=== PATIENT | female | born 1935 | race African-American/Black ===

== ENCOUNTER 2016-06-06 14:38 | Emergency (ER) | payer MEDICARE, OTHER ==
[~2016-06-06] VITALS: Ht 170.2 cm; Wt 65.3 kg
[2016-06-06] MEDS ORDERED: DIPHENHYDRAMINE 50 MG/ML VIAL IVP ONE (15:00)
[2016-06-06] MEDS ORDERED: IV NORMAL SALINE 1000ML BAG 1,000 ML IV ONE (15:00)
[2016-06-06] MEDS ORDERED: KETOROLAC TROMETHAMINE 30 MG/ML SYRINGE. IV ONE (15:00)
[2016-06-06] MEDS ORDERED: METOCLOPRAMIDE HCL 10 MG/2 ML VIAL. IV ONE (15:00)
--- NOTE | 2016-06-06 15:45 | RAD ---
CT of the head without contrast, 06/06/2016: History: Headache Comparison is made to a study from 06/28/2006. The ventricles are within normal limits in size. There is no shift of the midline structures. There is no evidence of acute intracranial hemorrhage or mass effect. There are moderate patchy lucencies in the deep white matter bilaterally. These appear to have progressed slightly since the previous study. The findings suggest chronic ischemic change. There is a tiny lucency in the anterior limb of the right internal capsule suggesting an old lacunar infarct. There is an additional small left basal ganglia lucency. These findings are unchanged. IMPRESSION: 1. Moderate bilateral deep white matter lucencies compatible with chronic ischemic change. 2. Small old lacunar infarcts in the basal ganglia regions. 3. No acute intracranial abnormality is detected. PQRS Compliance Statement: One or more of the following individualized dose reduction techniques were utilized for this examination: 1. Automated exposure control 2. Adjustment of the mA and/or kV according to patient size 3. Use of iterative reconstruction technique
[2016-06-06 17:00] VITALS: BP 138/65
[2016-06-06] MEDS ORDERED: METO10TA81 PO (17:14)
--- NOTE | 2016-06-06 17:14 | PHYS DOC ---
Past Medical History Past Medical History: Arthritis, Constipation, CVA, Hypothyroid Past Surgical History: Hip Replacement, Hysterectomy Additional Past Surgical Histo: rt hip Alcohol Use: None Drug Use: None Adult General Chief Complaint Chief Complaint: HEADACHE HPI HPI Patient is a 80 year old [f__sex] who presents with [] Review of Systems Review of Systems Constitutional: Denies fever or chills [] Eyes: Denies change in visual acuity, redness, or eye pain [] HENT: Denies nasal congestion or sore throat [] Respiratory: Denies cough or shortness of breath [] Cardiovascular: No additional information not addressed in HPI [] GI: Denies abdominal pain, nausea, vomiting, bloody stools or diarrhea [] : Denies dysuria or hematuria [] Musculoskeletal: Denies back pain or joint pain [] Integument: Denies rash or skin lesions [] Neurologic: Denies headache, focal weakness or sensory changes [] Endocrine: Denies polyuria or polydipsia [] Current Medications Current Medications Current Medications Medications (Trade) Dose Ordered Sig/Jeffry Start Time Stop Time Status Last Admin Dose Admin Diphenhydramine HCl (Benadryl) 25 mg 1X ONCE 06/06/16 15:00 06/06/16 15:04 DC 06/06/16 15:07 25 MG Ketorolac Tromethamine (Toradol) 30 mg 1X ONCE 06/06/16 15:00 06/06/16 15:04 DC 06/06/16 15:07 30 MG Metoclopramide HCl (Reglan) 10 mg 1X ONCE 06/06/16 15:00 06/06/16 15:04 DC 06/06/16 15:07 10 MG Sodium Chloride (Iv Sodium Chloride 0.9% 1000ml Bag) 1,000 ml @ 1,000 mls/hr 1X ONCE 06/06/16 15:00 06/06/16 15:59 DC 06/06/16 15:08 1,000 MLS/HR Allergies Allergies Allergies Coded Allergies Type Severity Reaction Last Updated Verified No Known Drug Allergies 01/10/14 No Physical Exam Physical Exam Constitutional: Well developed, well nourished, no acute distress, non-toxic appearance. [] HENT: Normocephalic, atraumatic, bilateral external ears normal, oropharynx moist, no oral exudates, nose normal. [] Eyes: PERRLA, EOMI, conjunctiva normal, no discharge. [] Neck: Normal range of motion, no tenderness, supple, no stridor. [] Cardiovascular:Heart rate regular rhythm, no murmur [] Lungs & Thorax: Bilateral breath sounds clear to auscultation [] Abdomen: Bowel sounds normal, soft, no tenderness, no masses, no pulsatile masses. [] Skin: Warm, dry, no erythema, no rash. [] Back: No tenderness, no CVA tenderness. [] Extremities: No tenderness, no cyanosis, no clubbing, ROM intact, no edema. [] Neurologic: Alert and oriented X 3, normal motor function, normal sensory function, no focal deficits noted. [] Psychologic: Affect normal, judgement normal, mood normal. [] Current Patient Data Vital Signs Vital Signs Date Time Temp Pulse Resp B/P Pulse Ox O2 Delivery O2 Flow Rate FiO2 06/06/16 14:56 98.4 59 23 142/78 100 Room Air 98.4 EKG EKG [] Radiology/Procedures Radiology/Procedures [] Impressions: PROCEDURE: HEAD WO CONTRAST CT of the head without contrast, 06/06/2016: History: Headache Comparison is made to a study from 06/28/2006. The ventricles are within normal limits in size. There is no shift of the midline structures. There is no evidence of acute intracranial hemorrhage or mass effect. There are moderate patchy lucencies in the deep white matter bilaterally. These appear to have progressed slightly since the previous study. The findings suggest chronic ischemic change. There is a tiny lucency in the anterior limb of the right internal capsule suggesting an old lacunar infarct. There is an additional small left basal ganglia lucency. These findings are unchanged. IMPRESSION: 1. Moderate bilateral deep white matter lucencies compatible with chronic ischemic change. 2. Small old lacunar infarcts in the basal ganglia regions. 3. No acute intracranial abnormality is detected. Course & Med Decision Making Course & Med Decision Making Pertinent Labs and Imaging studies reviewed. (See chart for details) [ED course: Evaluation reveals an 80-year-old female with a headache. She had no lateralizing neurologic weakness. She was given IV fluids Reglan and Benadryl which alleviated her symptoms. Fill the patient is stable for discharge home] Dragon Disclaimer Dragon Disclaimer This electronic medical record was generated, in whole or in part, using a voice recognition dictation system. Departure Departure Impression: Primary Impression: Headache Disposition: 01 HOME, SELF-CARE Condition: STABLE Referrals: ESTHELA DE SOUZA (PCP) Patient Instructions: Headache, FAQs, Migraine Headache Additional Instructions: Thank you for allowing us to participate in your care today. Followup with your primary care physician in 3 days if your symptoms do not improve. Return to the emergency department you have any new or concerning findings. This should be evaluated by the primary care physician and any necessary consulting services for continued management within a few days after discharge. Return to emergency room if you have any new or concerning symptoms including but not limited to fever, chills, nausea, vomiting, intractable pain, any new rashes, chest pain, shortness of air, uncontrolled bleeding, difficulty breathing, and/or vision loss. You may have been prescribed medication that can change in your level of thinking and ability to operate machinery. These medications include hydrocodone and Ativan. Also, Benadryl has been known to do this as well. Be sure to check with your pharmacist and ask if the medications you've prescribed can affect your level of consciousness. I recommend not operating heavy machinery or driving while on medication such as these. Scripts Metoclopramide Hcl (Reglan)10 Mg Tablet1 Tab PO Q8HRS PRN migraine #30 TAB Prov:HANNA LOVING DO 06/06/16 Problem Qualifiers Primary Impression: Headache Headache type: tension-type Headache chronicity pattern: unspecified pattern Intractability: not intractable Qualified Code: G44.209 - Tension- type headache, unspecified, not intractable HANNA LOVING DO Jun 06, 2016 17:14
== END 2016-06-06 17:21 | disposition home or self-care (01) ==
LOC: ER 14:38
DX: G44.209 Tension-type headache, unspecified, not intractable (principal); E03.9 Hypothyroidism, unspecified; Z86.73 Personal history of transient ischemic attack (TIA), and cerebral infarction without residual deficits
CPT/HCPCS: 70450; 96361; 96374; 96375; 99284; J1200; J1885; J2765; J7030

== ENCOUNTER → 2016-07-26 | Outpatient (CLI) | payer MEDICARE, OTHER ==
[~2016-07-26] MED LIST: METO10TA81 PO
== END | disposition home or self-care (01) ==
LOC: RT 10:30
PROVIDERS: ATTEND Psychiatry & Neurology Neurology
DX: R94.01 Abnormal electroencephalogram [EEG] (principal)
CPT/HCPCS: 95816

== ENCOUNTER → 2016-08-06 | Outpatient (CLI) | payer MEDICARE, OTHER ==
--- NOTE | 2016-08-06 14:09 | RAD ---
PROCEDURE MRI of the brain without and with contrast 08/06/2016 HISTORY Increased headaches and memory loss. TECHNIQUE Unenhanced T1 weighted sagittal and axial, T2 weighted axial and coronal and FLAIR, gradient echo and diffusion weighted axial images of the brain were obtained. After the intravenous administration of 6 cc of Gadavist, enhanced T1 weighted axial and coronal images of the brain were obtained. FINDINGS Comparison study is dated 06/29/2006. There is generalized parenchymal atrophy. Patchy, confluent and multiple focal areas of abnormally increased signal intensity are seen within the periventricular and subcortical white matter of both cerebral hemispheres along with the st[place]ford on the FLAIR and T2 weighted images consistent with areas of extensive small vessel ischemic disease. These have increased since the previous examination. Small old areas of infarction are seen involving both cerebellar hemispheres and the left and right thalamus. These measure 2 to 9 millimeters in size. Several small focal areas of decreased signal intensity are seen involving the left and right thalamus predominantly on the gradient echo images. There is no surrounding edema or associated mass effect. They are felt to most likely represent cavernous angiomas versus areas of old microhemorrhage. No acute parenchymal abnormality is seen. No extra-axial fluid collection is noted. There is no MRI evidence of acute ischemia/infarction. No abnormal area of contrast enhancement is seen. Mild mucosal thickening is seen involving scattered ethmoid air cells bilaterally. Normal flow voids are seen within the major vascular structures surrounding the brain parenchyma. IMPRESSION No acute parenchymal abnormality is seen. Electronically signed by: Neno Chacko MD (Aug 06, 2016 14:08:25)
== END | disposition home or self-care (01) ==
LOC: MRI 15:09
PROVIDERS: ATTEND Psychiatry & Neurology Neurology
DX: I63.9 Cerebral infarction, unspecified (principal); R51 Headache; R41.3 Other amnesia
CPT/HCPCS: 70553

== ENCOUNTER → 2017-09-29 | Outpatient (CLI) | payer MEDICARE, OTHER ==
[~2017-09-29] MED LIST changes: +CONTRAST GIVEN MC; -METO10TA81 PO
[2017-09-29] MEDS: IOHEXOL 300 MG/ML 100ML VIAL. IV (11:27)
[2017-09-29 11:53] LABS: ISTAT CREATININE 1.1 mg/dL (0.6-1.1)
== END | disposition home or self-care (01) ==
LOC: KCIC CT 10:13
DX: M43.16 Spondylolisthesis, lumbar region (principal); I70.0 Atherosclerosis of aorta; R31.0 Gross hematuria
CPT/HCPCS: 74178; 82565; Q9967

== ENCOUNTER → 2017-10-05 | Outpatient (CLI) | payer OTHER ==
[2017-10-05 11:42] LABS: ADD MAN DIFF? NO
[2017-10-05 11:49] LABS: BASO % 1 % (0-3); EOS % 1 % (0-3); HEMATOCRIT 26.7 % (36.0-47.0); HEMOGLOBIN 8.9 g/dL (12.0-15.5); LYMPH # 0.9 x10^3/uL (1.0-4.8); LYMPH % 23 % (24-48); MEAN CORPUSCULAR HEMOGLOBIN 32 pg (25-35); MEAN CORPUSCULAR HGB CONC 33 g/dL (31-37); MEAN CORPUSCULAR VOLUME 96 fL (79-100); MONO # 0.4 x10^3/uL (0.0-1.1); MONO % 11 % (0-9); NEUT # 2.5 x10^3uL (1.8-7.7); NEUT % 64 % (31-73); PLATELET COUNT 292 x10^3/uL (140-400); RED BLOOD COUNT 2.78 x10^6/uL (3.50-5.40); WHITE BLOOD COUNT 3.9 x10^3/uL (4.0-11.0)
[2017-10-05 12:00] LABS: ALBUMIN/GLOBULIN RATIO 0.6 (1.0-1.7); ALK PHOS 65 U/L (46-116); ALT (SGPT) 17 U/L (14-59); ANION GAP 3 (6-14); AST (SGOT) 19 U/L (15-37); BLOOD UREA NITROGEN 16 mg/dL (7-20); BUN/CREATININE RATIO 16 (6-20); CALCIUM 9.9 mg/dL (8.5-10.1); CARBON DIOXIDE 30 mmol/L (21-32); CHLORIDE 106 mmol/L (98-107); GFR 63.9; GLUCOSE 86 mg/dL (70-99); POTASSIUM 4.3 mmol/L (3.5-5.1); SODIUM 139 mmol/L (136-145); TOTAL BILIRUBIN 0.2 mg/dL (0.2-1.0); TOTAL PROTEIN 8.2 g/dL (6.4-8.2)
== END | disposition home or self-care (01) ==
LOC: LAB 10:57
DX: R31.0 Gross hematuria (principal)
CPT/HCPCS: 36415; 80053; 85025; 93005

== ENCOUNTER 2018-04-11 22:29 | Emergency (ER) | payer OTHER ==
[~2018-04-11] VITALS: Ht 170.2 cm; Wt 64.0 kg
[~2018-04-11 22:29] MED LIST changes: +CLOP75TA PO; -CONTRAST GIVEN MC; +DOCU-150 PO; +FAMO-63 PO; +HYDR-3164 PO; +HYOS0.1265 SL; +LEVO150T5 PO; +METO10TA81 PO; +MULT-237 PO; +SENN1TAB29 PO
--- NOTE | 2018-04-11 23:11 | PHYS DOC ---
Past Medical History Past Medical History: Arthritis, Constipation, CVA, Hypothyroid Past Surgical History: Hip Replacement, Hysterectomy Additional Past Surgical Histo: rt hip Alcohol Use: None Drug Use: None Adult General Chief Complaint Chief Complaint: DIZZY/LIGHT HEADED HPI HPI Patient is a 82 year old [f__sex] who presents with [] Review of Systems Review of Systems Constitutional: Denies fever or chills [] Eyes: Denies change in visual acuity, redness, or eye pain [] HENT: Denies nasal congestion or sore throat [] Respiratory: Denies cough or shortness of breath [] Cardiovascular: No additional information not addressed in HPI [] GI: Denies abdominal pain, nausea, vomiting, bloody stools or diarrhea [] : Denies dysuria or hematuria [] Musculoskeletal: Denies back pain or joint pain [] Integument: Denies rash or skin lesions [] Neurologic: Denies headache, focal weakness or sensory changes [] Endocrine: Denies polyuria or polydipsia [] All other systems were reviewed and found to be within normal limits, except as documented in this note. Current Medications Current Medications Current Medications Medications (Trade) Dose Ordered Sig/Jeffry Start Time Stop Time Status Last Admin Dose Admin Meclizine HCl (Antivert) 25 mg 1X ONCE 04/11/18 23:45 04/11/18 23:46 DC 04/11/18 23:41 25 MG Sodium Chloride 1,000 ml @ 1,000 mls/hr 1X ONCE 04/11/18 23:30 04/12/18 00:29 04/11/18 23:17 1,000 MLS/HR Allergies Allergies Allergies Coded Allergies Type Severity Reaction Last Updated Verified No Known Drug Allergies 11/09/17 No Physical Exam Physical Exam Constitutional: Well developed, well nourished, no acute distress, non-toxic appearance. [] HENT: Normocephalic, atraumatic, bilateral external ears normal, oropharynx moist, no oral exudates, nose normal. [] Eyes: PERRLA, EOMI, conjunctiva normal, no discharge. [] Neck: Normal range of motion, no tenderness, supple, no stridor. [] Cardiovascular:Heart rate regular rhythm, no murmur [] Lungs & Thorax: Bilateral breath sounds clear to auscultation [] Abdomen: Bowel sounds normal, soft, no tenderness, no masses, no pulsatile masses. [] Skin: Warm, dry, no erythema, no rash. [] Back: No tenderness, no CVA tenderness. [] Extremities: No tenderness, no cyanosis, no clubbing, ROM intact, no edema. [] Neurologic: Alert and oriented X 3, normal motor function, normal sensory function, no focal deficits noted. [] Psychologic: Affect normal, judgement normal, mood normal. [] Current Patient Data Vital Signs Vital Signs Date Time Temp Pulse Resp B/P (MAP) Pulse Ox O2 Delivery O2 Flow Rate FiO2 04/11/18 22:30 97.7 58 20 137/77 (97) 98 Room Air 97.7 Lab Values Laboratory Tests Test 04/11/18 22:47 04/11/18 23:00 Urine Collection Type U cath Urine Color Yellow Urine Clarity Clear Urine pH 6.5 Urine Specific [place] 1.015 Urine Protein 30 mg/dL (NEG-TRACE) Urine Glucose (UA) Negative mg/dL (NEG) Urine Ketones (Stick) Negative mg/dL (NEG) Urine Blood Small (NEG) Urine Nitrite Negative (NEG) Urine Bilirubin Negative (NEG) Urine Urobilinogen Dipstick 0.2 mg/dL (0.2 mg/dL) Urine Leukocyte Esterase Negative (NEG) Urine RBC 3-5 /HPF (0-2) Urine WBC Occ /HPF (0-4) Urine Squamous Epithelial Cells Few /LPF Urine Bacteria 0 /HPF (0-FEW) Urine Mucus Slight /LPF White Blood Count 4.1 x10^3/uL (4.0-11.0) Red Blood Count 2.97 x10^6/uL (3.50-5.40) L Hemoglobin 9.6 g/dL (12.0-15.5) L Hematocrit 27.8 % (36.0-47.0) L Mean Corpuscular Volume 94 fL (79-100) Mean Corpuscular Hemoglobin 32 pg (25-35) Mean Corpuscular Hemoglobin Concent 35 g/dL (31-37) Red Cell Distribution Width 15.0 % (11.5-14.5) H Platelet Count 244 x10^3/uL (140-400) Neutrophils (%) (Auto) 50 % (31-73) Lymphocytes (%) (Auto) 34 % (24-48) Monocytes (%) (Auto) 13 % (0-9) H Eosinophils (%) (Auto) 2 % (0-3) Basophils (%) (Auto) 1 % (0-3) Neutrophils # (Auto) 2.0 x10^3uL (1.8-7.7) Lymphocytes # (Auto) 1.4 x10^3/uL (1.0-4.8) Monocytes # (Auto) 0.5 x10^3/uL (0.0-1.1) Eosinophils # (Auto) 0.1 x10^3/uL (0.0-0.7) Basophils # (Auto) 0.0 x10^3/uL (0.0-0.2) Sodium Level 140 mmol/L (136-145) Potassium Level 3.6 mmol/L (3.5-5.1) Chloride Level 104 mmol/L (98-107) Carbon Dioxide Level 32 mmol/L (21-32) Anion Gap 4 (6-14) L Blood Urea Nitrogen 18 mg/dL (7-20) Creatinine 1.1 mg/dL (0.6-1.0) H Estimated GFR (Cockcroft-Gault) 57.3 BUN/Creatinine Ratio 16 (6-20) Glucose Level 91 mg/dL (70-99) Calcium Level 9.6 mg/dL (8.5-10.1) Magnesium Level 2.0 mg/dL (1.8-2.4) Total Bilirubin 0.1 mg/dL (0.2-1.0) L Aspartate Amino Transferase (AST) 14 U/L (15-37) L Alanine Aminotransferase (ALT) 14 U/L (14-59) Alkaline Phosphatase 83 U/L (46-116) Creatine Kinase 71 U/L (26-192) Creatine Kinase MB (Mass) 8.7 ng/mL (0.0-3.6) H Creatine Kinase MB Relative Index % (0-4) Troponin I Quantitative < 0.017 ng/mL (0.000-0.055) Total Protein 7.7 g/dL (6.4-8.2) Albumin 2.8 g/dL (3.4-5.0) L Albumin/Globulin Ratio 0.6 (1.0-1.7) L Laboratory Tests 04/11/18 23:00 Laboratory Tests 04/11/18 23:00 EKG EKG @2241 Sinus bradycardia at 53 bpm, NO ST elevation, nonspecific t wave inversion V3, LAFB Radiology/Procedures Radiology/Procedures [] Course & Med Decision Making Course & Med Decision Making Pertinent Labs and Imaging studies reviewed. (See chart for details) [] Dragon Disclaimer Dragon Disclaimer This electronic medical record was generated, in whole or in part, using a voice recognition dictation system. Departure Departure Impression: Primary Impression: Dizziness Disposition: 01 HOME, SELF-CARE Condition: IMPROVED Referrals: ESTHELA DE SOUZA (PCP) Patient Instructions: Dizziness, [id number] Scripts Meclizine Hcl (MECLIZINE HCL) 12.5 Mg Tablet 1 TAB PO TID PRN for DIZZINESS, #20 TAB 0 Refills Prov: ANGELIC ZHOU DO 04/12/18 ANGELIC ZHOU DO Apr 11, 2018 23:11
[2018-04-11 23:16] LABS: BILIRUBIN,URINE NEGATIVE (NEG); CLARITY,URINE CLEAR; COLOR,URINE YELLOW; NITRITE,URINE NEGATIVE (NEG); PH,URINE 6.5; PROTEIN,URINE 30 mg/dL (NEG-TRACE); UROBILINOGEN,URINE 0.2 mg/dL (0.2 mg/dL)
[2018-04-11 23:17] LABS: BASO % 1 % (0-3); EOS # 0.1 x10^3/uL (0.0-0.7); EOS % 2 % (0-3); HEMATOCRIT 27.8 % (36.0-47.0); HEMOGLOBIN 9.6 g/dL (12.0-15.5); LYMPH # 1.4 x10^3/uL (1.0-4.8); LYMPH % 34 % (24-48); MEAN CORPUSCULAR HEMOGLOBIN 32 pg (25-35); MEAN CORPUSCULAR HGB CONC 35 g/dL (31-37); MEAN CORPUSCULAR VOLUME 94 fL (79-100); MONO # 0.5 x10^3/uL (0.0-1.1); MONO % 13 % (0-9); NEUT % 50 % (31-73); PLATELET COUNT 244 x10^3/uL (140-400); RED BLOOD COUNT 2.97 x10^6/uL (3.50-5.40); WHITE BLOOD COUNT 4.1 x10^3/uL (4.0-11.0)
[2018-04-11 23:20] LABS: BACTERIA,URINE 0 /HPF (0-FEW); SQUAMOUS EPITHELIAL CELL,UR FEW /LPF; WBC,URINE OCC /HPF (0-4)
[2018-04-11 23:24] LABS: CALCIUM 9.6 mg/dL (8.5-10.1); CREATININE 1.1 mg/dL (0.6-1.0); GFR 57.3; POTASSIUM 3.6 mmol/L (3.5-5.1)
[2018-04-11 23:30] LABS: ALBUMIN 2.8 g/dL (3.4-5.0); ALBUMIN/GLOBULIN RATIO 0.6 (1.0-1.7); TOTAL BILIRUBIN 0.1 mg/dL (0.2-1.0); TOTAL PROTEIN 7.7 g/dL (6.4-8.2)
[2018-04-11] MEDS ORDERED: IV NORMAL SALINE 1000ML BAG 1,000 ML IV ONE (23:30)
[2018-04-11 23:38] LABS: CREATINE KINASE 71 U/L (26-192)
--- NOTE | 2018-04-11 23:41 | RAD ---
CT scan of the head without contrast 04/11/2018 Clinical History: Dizziness. Technique: Unenhanced, contiguous, 5 mm axial sections were obtained through the head. One or more of the following individualized dose reduction techniques were utilized for this study: 1. Automated exposure control. 2. Adjustment of the mA and/or kV according to patient size. 3. Use of iterative reconstruction technique. Findings: Comparison study is dated 06/06/2016. There is generalized parenchymal atrophy. Areas of decreased attenuation are seen within the periventricular and subcortical white matter of both cerebral hemispheres consistent with areas of small vessel ischemic disease. No acute parenchymal abnormality is seen. No extra-axial fluid collection is noted. No skull fracture is seen. Impression: No acute intracranial abnormality is seen. Electronically signed by: Neno Chacko MD (04/11/2018 11:38 PM) [id number]
[2018-04-11] MEDS ORDERED: MECLIZINE HCL 12.5 MG TABLET. PO ONE (23:45)
--- NOTE | 2018-04-11 23:49 | RAD ---
AP pelvis radiograph to include AP and lateral radiographs of the right hip 04/11/2018 CLINICAL HISTORY: Fall one month ago with right hip pain. An AP digital radiograph of the pelvis to include both hips was obtained. AP and lateral radiographs of the right hip were obtained. The patient is post right hip replacement. The prosthetic components are intact. No pelvic bone fracture is seen. No fracture or dislocation of the right hip is noted. Mild degenerative changes are seen involving both SI joints. IMPRESSION: Post right hip replacement. No acute fracture or dislocation is seen. Electronically signed by: Neno Chacko MD (04/11/2018 11:45 PM) [id number]
[2018-04-12] VITALS: BP 158/81
--- NOTE | 2018-04-12 00:06 | RAD ---
AP portable chest radiograph 04/11/2018 Clinical History: Dizziness. An AP semi erect portable digital radiograph of the chest was obtained. Comparison study is dated 10/03/2010. The cardiac silhouette is mildly enlarged. The thoracic aorta is tortuous. Atherosclerotic calcification of the thoracic aorta is seen. No acute pulmonary infiltrate is noted. No pneumothorax or pleural effusion is seen. Degenerative changes are seen involving the thoracic spine and both shoulders. Impression: No acute abnormality is seen. Electronically signed by: Neno Chacko MD (04/12/2018 12:03 AM) [facility]
[2018-04-12] MEDS ORDERED: MECL12.52 PO (00:19)
--- NOTE | 2018-04-12 04:21 | EKG ---
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
== END 2018-04-12 00:55 | disposition home or self-care (01) ==
LOC: ER 22:29
DX: R42 Dizziness and giddiness (principal); E03.9 Hypothyroidism, unspecified; M19.90 Unspecified osteoarthritis, unspecified site; Z86.73 Personal history of transient ischemic attack (TIA), and cerebral infarction without residual deficits; Z96.641 Presence of right artificial hip joint
CPT/HCPCS: 36415; 70450; 71045; 73502; 80053; 81001; 82553; 83735; 84484; 85025; 93005; 96360; 99284; J7030; J8597

== ENCOUNTER 2018-05-22 13:15 | Emergency (ER) | payer OTHER ==
[~2018-05-22] VITALS: Ht 170.2 cm; Wt 77.6 kg
[~2018-05-22 13:15] MED LIST changes: +MECL12.52 PO
--- NOTE | 2018-05-22 13:23 | PHYS DOC ---
Past Medical History Past Medical History: Arthritis, Constipation, CVA, Hypothyroid Past Surgical History: Hip Replacement, Hysterectomy Additional Past Surgical Histo: rt hip Alcohol Use: None Drug Use: None Adult General HPI HPI Patient is a 82 year old female who presents with abdominal pain. Patient complains of diffuse abdominal pain which she has had over the last 4-5 days. The patient states her last bowel movement was 5 days earlier. She does have the sensation that she needs to defecate but has been unable to do so. She denies urinary symptoms. No nausea or vomiting. No hematochezia or melena. Denies chest pain or shortness of breath. At baseline, the patient lives in an apartment and does have a caregiver that helps her daily. Review of Systems Review of Systems Constitutional: Denies fever Eyes: Denies change in visual acuity HENT: Denies Respiratory: Denies Cardiovascular: No additional information not addressed in HPI GI: as documented above : Denies dysuria Musculoskeletal: Denies back pain Integument: Denies rash or skin lesions Neurologic: Denies headache All other systems were reviewed and found to be within normal limits, except as documented in this note. Current Medications Current Medications Current Medications Medications (Trade) Dose Ordered Sig/Jeffry Start Time Stop Time Status Last Admin Dose Admin Ceftriaxone Sodium (Rocephin) 1 gm 1X ONCE 05/22/18 16:15 05/22/18 16:16 DC 05/22/18 16:25 1 GM Info (CONTRAST GIVEN -- Rx MONITORING) 1 each PRN DAILY PRN 05/22/18 14:30 05/24/18 14:29 Iohexol (Omnipaque 300 Mg/ml) 60 ml 1X ONCE 05/22/18 14:30 05/22/18 14:31 DC 05/22/18 14:36 60 ML Phenytoin Sodium (Dilantin) 500 mg 1X ONCE 05/22/18 16:15 05/22/18 16:16 Cancel Sodium Monofluorophosphate (Fleet Adult) 133 ml 1X ONCE 05/22/18 16:15 05/22/18 16:16 DC 05/22/18 16:26 133 ML Allergies Allergies Allergies Coded Allergies Type Severity Reaction Last Updated Verified No Known Drug Allergies 11/09/17 No Physical Exam Physical Exam Constitutional: Well developed, well nourished, no acute distress, non-toxic appearance HENT: Normocephalic, atraumatic, bilateral external ears normal, oropharynx moist Eyes: PERRLA, EOMI, conjunctiva normal Neck: Normal range of motion, no tenderness Cardiovascular:Heart rate regular rhythm, no murmur Lungs & Thorax: Bilateral breath sounds clear to auscultation Abdomen: soft, diffusely TTP but no guarding or rebound tenderness, no distension Skin: Warm, dry, no erythema, no rash Extremities: No tenderness, no edema Neurologic: Alert and oriented X 3, normal motor function Psychologic: Affect normal, judgement normal Current Patient Data Vital Signs Vital Signs Date Time Temp Pulse Resp B/P (MAP) Pulse Ox O2 Delivery O2 Flow Rate FiO2 05/22/18 15:51 50 165/82 (109) 99 Room Air 05/22/18 13:15 98.1 18 98.1 Lab Values Laboratory Tests Test 05/22/18 13:40 05/22/18 14:50 White Blood Count 3.8 x10^3/uL (4.0-11.0) L Red Blood Count 3.41 x10^6/uL (3.50-5.40) L Hemoglobin 10.9 g/dL (12.0-15.5) L Hematocrit 31.9 % (36.0-47.0) L Mean Corpuscular Volume 94 fL (79-100) Mean Corpuscular Hemoglobin 32 pg (25-35) Mean Corpuscular Hemoglobin Concent 34 g/dL (31-37) Red Cell Distribution Width 15.0 % (11.5-14.5) H Platelet Count 265 x10^3/uL (140-400) Neutrophils (%) (Auto) 54 % (31-73) Lymphocytes (%) (Auto) 35 % (24-48) Monocytes (%) (Auto) 9 % (0-9) Eosinophils (%) (Auto) 1 % (0-3) Basophils (%) (Auto) 1 % (0-3) Neutrophils # (Auto) 2.1 x10^3uL (1.8-7.7) Lymphocytes # (Auto) 1.3 x10^3/uL (1.0-4.8) Monocytes # (Auto) 0.3 x10^3/uL (0.0-1.1) Eosinophils # (Auto) 0.0 x10^3/uL (0.0-0.7) Basophils # (Auto) 0.1 x10^3/uL (0.0-0.2) Sodium Level 138 mmol/L (136-145) Potassium Level 3.9 mmol/L (3.5-5.1) Chloride Level 103 mmol/L (98-107) Carbon Dioxide Level 30 mmol/L (21-32) Anion Gap 5 (6-14) L Blood Urea Nitrogen 16 mg/dL (7-20) Creatinine 1.1 mg/dL (0.6-1.0) H Estimated GFR (Cockcroft-Gault) 57.3 Glucose Level 102 mg/dL (70-99) H Lactic Acid Level 1.3 mmol/L (0.4-2.0) Calcium Level 9.8 mg/dL (8.5-10.1) Total Bilirubin 0.2 mg/dL (0.2-1.0) Direct Bilirubin 0.1 mg/dL (0.0-0.2) Aspartate Amino Transferase (AST) 20 U/L (15-37) Alanine Aminotransferase (ALT) 20 U/L (14-59) Alkaline Phosphatase 63 U/L (46-116) Troponin I Quantitative < 0.017 ng/mL (0.000-0.055) Total Protein 8.1 g/dL (6.4-8.2) Albumin 3.1 g/dL (3.4-5.0) L Lipase 103 U/L (73-393) Urine Collection Type Unknown Urine Color Yellow Urine Clarity Clear Urine pH 6.5 Urine Specific Ubly 1.020 Urine Protein 100 mg/dL (NEG-TRACE) Urine Glucose (UA) Negative mg/dL (NEG) Urine Ketones (Stick) Negative mg/dL (NEG) Urine Blood Moderate (NEG) Urine Nitrite Negative (NEG) Urine Bilirubin Negative (NEG) Urine Urobilinogen Dipstick 0.2 mg/dL (0.2 mg/dL) Urine Leukocyte Esterase Trace (NEG) Urine RBC 20-40 /HPF (0-2) Urine WBC 11-20 /HPF (0-4) Urine Squamous Epithelial Cells Mod /LPF Urine Bacteria Few /HPF (0-FEW) Urine Mucus Mod /LPF Laboratory Tests 05/22/18 13:40 Laboratory Tests 05/22/18 13:40 EKG EKG No STEMI Interpretation Time: 13:50 Radiology/Procedures Radiology/Procedures IMPRESSION: 1. Prominent appearing pancreatic duct with pancreatic calcifications again identified. Chronic pancreatitis is a possibility given the findings: No evidence of inflammation identified about the pancreas to suggest acute pancreatitis. Cannot exclude underlying pancreatic pathology. Recommend follow-up nonemergent MRI for further evaluation. 2. The appendix is not clearly identified due to multiple nondistended small bowel loops in the right lower quadrant of the abdomen. The evaluation is limited due to streak artifact from right hip prosthesis. 3. Sigmoid colon diverticulosis. 4. Right renal cyst unchanged. Mild prominent appearing bilateral extrarenal pelvis. Impressions: Constipation Course & Med Decision Making Course & Med Decision Making Pertinent Labs and Imaging studies reviewed. (See chart for details) Patient is evaluated immediately on arrival to her room. Her abdominal exam is mostly benign. Standard abdominal pain workup is ordered. Will also check troponin, EKG, and lactate. 16:30: All results are reviewed and discussed with the patient. There are no acute findings to explain her pain. She is currently not having pain. She was not given pain medications in the emergency department. She does continue to complain that she feels the need to defecate but is unable to do so. We'll give fleets enema and reevaluate. Her troponin is not elevated. Her EKG is nonacute. The rest of her lab panels unremarkable other than possible urinary tract infection for which she is being given Rocephin. 17:12: Patient was given a Fleet enema. She had a large solid BM and immediately felt improved. Patient was requesting discharge home. She was given Rocephin in the ER. Unclear if she actually has urinary tract infection though the records show she does have some history of bladder cancer. She will be treated with Macrobid at home over the next 5 days. Patient is encouraged to follow-up with her primary care doctor or come back to the ER for any new or worsening symptoms. She had docusate 100 mg prescribed twice daily along with MiraLAX daily or more than daily as needed for constipation. Dragon Disclaimer Dragon Disclaimer This electronic medical record was generated, in whole or in part, using a voice recognition dictation system. Departure Departure Disposition: 01 HOME, SELF-CARE Condition: GOOD Referrals: ESTHELA DE SOUZA (PCP) Scripts Nitrofurantoin Monohyd/M-Cryst (MACROBID 100 MG CAPSULE) 100 Mg Capsule 1 CAP PO BID, #10 CAP Prov: ASHLEY DYSON DO 05/22/18 Polyethylene Glycol 3350 (MIRALAX) 17 Gm Powd.pack 1 PACKET PO DAILY for constipation, #30 PACKET 3 Refills Prov: ASHLEY DYSON DO 05/22/18 Docusate Sodium (DOCUSATE SODIUM) 100 Mg Capsule 1 CAP PO BID, #60 CAP Prov: ASHLEY DYSON DO 05/22/18 ASHLEY DYSON DO May 22, 2018 13:23
[2018-05-22 13:54] LABS: BASO # 0.1 x10^3/uL (0.0-0.2); BASO % 1 % (0-3); EOS % 1 % (0-3); HEMATOCRIT 31.9 % (36.0-47.0); HEMOGLOBIN 10.9 g/dL (12.0-15.5); LYMPH # 1.3 x10^3/uL (1.0-4.8); LYMPH % 35 % (24-48); MEAN CORPUSCULAR HEMOGLOBIN 32 pg (25-35); MEAN CORPUSCULAR HGB CONC 34 g/dL (31-37); MEAN CORPUSCULAR VOLUME 94 fL (79-100); MONO # 0.3 x10^3/uL (0.0-1.1); MONO % 9 % (0-9); NEUT # 2.1 x10^3uL (1.8-7.7); NEUT % 54 % (31-73); PLATELET COUNT 265 x10^3/uL (140-400); RED BLOOD COUNT 3.41 x10^6/uL (3.50-5.40); WHITE BLOOD COUNT 3.8 x10^3/uL (4.0-11.0)
[2018-05-22 14:01] LABS: CALCIUM 9.8 mg/dL (8.5-10.1); CREATININE 1.1 mg/dL (0.6-1.0); GFR 57.3; POTASSIUM 3.9 mmol/L (3.5-5.1)
[2018-05-22 14:07] LABS: ALBUMIN 3.1 g/dL (3.4-5.0); DIRECT BILIRUBIN 0.1 mg/dL (0.0-0.2); TOTAL BILIRUBIN 0.2 mg/dL (0.2-1.0); TOTAL PROTEIN 8.1 g/dL (6.4-8.2)
--- NOTE | 2018-05-22 14:18 | EKG ---
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
[2018-05-22] MEDS ORDERED: CONTRAST GIVEN. MC PRN (14:30)
[2018-05-22] MEDS ORDERED: IOHEXOL 300 MG/ML 100ML VIAL. IV ONE (14:30)
--- NOTE | 2018-05-22 15:03 | RAD ---
Examination: CT of the abdomen pelvis with IV contrast HISTORY: History of abdominal pain for 4 days COMPARISON: 09/29/2017 TECHNIQUE: Axial CT images of the abdomen pelvis were performed with IV contrast. Coronal and sagittal reformats are performed Exposure: One or more of the following individualized dose reduction techniques were utilized for this examination: 1. Automated exposure control 2. Adjustment of the mA and/or kV according to patient size 3. Use of iterative reconstruction technique FINDINGS: Minimal bibasilar lung atelectasis. No evidence of free air identified in the abdomen. Mild prominent appearing intrahepatic and extra hepatic bile duct likely postcholecystectomy changes similar to prior exam. Examination is limited lack of significant intra-abdominal fat. Visualized spleen, adrenals grossly appears unremarkable. The stomach is mildly distended. Mild prominent appearing pancreatic duct. Few calcifications identified in the pancreas similar to prior exam. The small bowel is nondilated. Feces and gas noted in the colon. The evaluation of the pelvis is limited due to streak artifact from right hip prosthesis. Few colonic diverticulosis identified. The bilateral kidneys enhance symmetrically. Cyst identified in the right kidney measuring 1.6 cm similar to prior exam. Prominent appearing bilateral extrarenal pelvis right greater than left. Evaluation of the distal ureters is limited due to streak artifact from right hip prosthesis. Moderate aortic atherosclerosis. The appendix is not clearly evident. Moderate degenerative changes lumbar spine. Transitional anatomy is identified in the lumbar spine. IMPRESSION: 1. Prominent appearing pancreatic duct with pancreatic calcifications again identified. Chronic pancreatitis is a possibility given the findings: No evidence of inflammation identified about the pancreas to suggest acute pancreatitis. Cannot exclude underlying pancreatic pathology. Recommend follow-up nonemergent MRI for further evaluation. 2. The appendix is not clearly identified due to multiple nondistended small bowel loops in the right lower quadrant of the abdomen. The evaluation is limited due to streak artifact from right hip prosthesis. 3. Sigmoid colon diverticulosis. 4. Right renal cyst unchanged. Mild prominent appearing bilateral extrarenal pelvis. Electronically signed by: Bautista Sears MD (05/22/2018 2:58 PM) [facility]
[2018-05-22 15:05] LABS: BILIRUBIN,URINE NEGATIVE (NEG); CLARITY,URINE CLEAR; COLOR,URINE YELLOW; NITRITE,URINE NEGATIVE (NEG); PH,URINE 6.5; PROTEIN,URINE 100 mg/dL (NEG-TRACE); UROBILINOGEN,URINE 0.2 mg/dL (0.2 mg/dL)
[2018-05-22 15:13] LABS: BACTERIA,URINE FEW /HPF (0-FEW); RBC,URINE 20-40 /HPF (0-2); SQUAMOUS EPITHELIAL CELL,UR MOD /LPF
[2018-05-22] MEDS ORDERED: PHENYTOIN SODIUM EXTENDED 100 MG CAPSULE PO ONE (16:15)
[2018-05-22] MEDS ORDERED: cefTRIAXone IV Push 1 GM VIAL. IVP ONE (16:15)
[2018-05-22] MEDS ORDERED: SODIUM PHOSPHATES 19/7GM 133 ML ENEMA. PR ONE (16:15)
[2018-05-22 17:07] VITALS: BP 174/81
[2018-05-22] MEDS ORDERED: POLY17PO29 PO (17:09)
[2018-05-22] MEDS ORDERED: DOCU100C28 PO (17:09)
[2018-05-22] MEDS ORDERED: NITR100C62 PO (17:10)
== END 2018-05-22 17:18 | disposition home or self-care (01) ==
LOC: ER 13:15
DX: K59.00 Constipation, unspecified (principal); N28.1 Cyst of kidney, acquired; E03.9 Hypothyroidism, unspecified; Z90.710 Acquired absence of both cervix and uterus; Z96.649 Presence of unspecified artificial hip joint; Z86.73 Personal history of transient ischemic attack (TIA), and cerebral infarction without residual deficits
CPT/HCPCS: 36415; 74177; 80048; 80076; 81001; 83605; 83690; 84484; 85025; 93005; 96374; 99284; J0696; Q9967

== ENCOUNTER 2018-09-06 09:10 | Day surgery (SDC) | payer OTHER ==
[~2018-09-06 09:10] MED LIST changes: +CIPROFLOXACIN 400MG PREMIX 200 ML IV ONE; +DOCU100C28 PO; +HYDROmorphone 2 MG/ML VIAL IV PRN; +IV RINGERS,LACTATED 1000ML 1,000 ML IV SCH; +LOSA1TAB19 PO; +MORPHINE SULFATE 2 MG/ML VIAL. IV PRN; +NITR100C62 PO; +ONDANSETRON PF 4 MG/2 ML VIAL. IV PRN; +POLY17PO29 PO; +PROCHLORPERAZINE 10 MG/2 ML VIAL. IV PRN; +fentaNYL PF VIAL 100 MCG/2 ML VIAL IV PRN
[2018-09-06] MEDS ORDERED: LIDOCAINE 2% JELLY 6ML IN APPLICATOR. ONE (09:33)
[2018-09-06] MEDS ORDERED: ONDANSETRON PF 4 MG/2 ML VIAL. ONE (10:09)
[2018-09-06] MEDS ORDERED: LIDOCAINE 2% PF 5 ML VIAL. ONE (10:09)
[2018-09-06] MEDS ORDERED: PROPOFOL 20 ML IV ONE (10:09)
[2018-09-06] MEDS ORDERED: ROCURONIUM 50 MG/5 ML VIAL. ONE (10:10)
[2018-09-06] MEDS ORDERED: fentaNYL PF VIAL 100 MCG/2 ML VIAL ONE (10:10)
[2018-09-06] MEDS ORDERED: NORMAL SALINE INT CAT ONE ×2 (10:30)
[2018-09-06] MEDS ORDERED: GEMCITABINE INT CAT ONE ×2 (10:30)
[2018-09-06] MEDS ORDERED: GLYCOPYRROLATE 1 MG/5 ML VIAL. ONE (12:21)
[2018-09-06] MEDS ORDERED: SEVOFLURANE 31 TO 60 MINUTES. IH ONE (12:26)
--- NOTE | 2018-09-06 12:31 | PDOC4 ---
OPERATIVE NOTE Date: Date: Sep 06, 2018 Pre-Op Diagnosis: BT Post-Op Diagnosis: BT bullous edema Procedure Performed: cysto, turbt gemcitabine instillation Surgeon: Anesthesia Type: ga Blood Loss: 1ml Specimans Obtained: BT Findings: Severe bullous edema and papillomatosis Distorted floor/trigone planes. posterior floor papillary lesion, removed completely,about 1cm in size. Complications: none evident SUE VIGIL MD Sep 06, 2018 12:31
--- NOTE | 2018-09-06 12:34 | DISCH ---
DISCHARGE INSTRUCTIONS Condition on Discharge Condition on Discharge: Stable Activity After Discharge Activity Instructions for Disc: Activity as tolerated Weight Bearing Status after Di: No restrictions Diet after Discharge Diet after Discharge: Regular Contacting the DRYoel after DC Call your doctor for: Concerns you may have Follow-Up Follow Up With: in 2 weeks SUE VIGIL MD Sep 06, 2018 12:34
[2018-09-06] MEDS ORDERED: TRAM50TA PO (13:25)
[2018-09-06] MEDS ORDERED: SULF1TAB24 PO (13:26)
[2018-09-06] MEDS ORDERED: PHEN100T82 PO (13:27)
[2018-09-06] MEDS ORDERED: traMADol 50 MG TABLET PO ONE (13:30)
[2018-09-06 14:15] VITALS: BP 145/87
--- NOTE | 2018-09-06 17:23 | OP ---
DATE OF SURGERY: 09/06/2018 PREOPERATIVE DIAGNOSES: Bladder tumor, gross hematuria. POSTOPERATIVE DIAGNOSES: Bladder tumor, gross hematuria. PROCEDURES: 1. Cystoscopy, TURBT. 2. Gemcitabine and bladder chemo instillation. SURGEON: Whit Tavares M.D. ANESTHESIA: General. CONDITION: Stable. COMPLICATIONS: None. FINDINGS: Severe bullous edema and papillomatosis noted on the floor, trigone at the bladder all the way to the bladder neck. This was mostly consisted of prior inflammation; however, there was one area on the posterior floor of the bladder that had papillary features concerning for urothelial carcinoma. This was removed completely with a resectoscope. PROCEDURE IN DETAIL: The patient was taken back to the procedure room and placed under general anesthesia in supine position per the protocol. She was prepped and draped in the usual sterile fashion in dorsal lithotomy position. Timeout was performed. SCDs were attached. IV antibiotics were administered. A 26-Gambian resectoscope was placed per urethra into the bladder. She had a mild meatal stenosis, which was dilated under direct vision. Upon entry into the bladder, there was severe bullous edema obscuring the trigone and the ureteral orifices. These had bullous edema changes with some pearly translucent appearance consistent with inflammatory changes. On the posterior wall, there is a 1-cm lesion, which looked papillary concerning for urothelial carcinoma. This was removed completely and sent for pathology. Pinpoint hemostasis was obtained. I was away from any ureteral orifice throughout the resection and cautery. Bladder was entered. A 16-Gambian Mcmillan catheter was placed. A 100 mL of 2 gram gemcitabine was placed in the bladder. The patient was awakened and taken to PACU in stable condition. DISPOSITION: Will leave the catheter with dwell time of 1 hour. Discontinue chemo line catheter1 hour, must void before discharge. Follow up with me in 2 weeks. WHIT TAVARES MD DR: JUAN CARLOS/christian JOB#: [id number] / [id number] MTDD
--- NOTE | 2018-09-08 14:06 | PATHOLOGY ---
[facility] Accession Number: [id number] . 01 Material submitted: . bladder - BLADDER TUMOR . 01 Clinical history: . Bladder cancer . 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 SEE COMMENT. - Chronic inflammation. (JPM:head buyer tobacco/alondra; 09/08/2018) MBR/09/08/2018 . 02 Comment: Sections of the bladder tumor transurethral resection reveal a papillary high grade urothelial carcinoma. There is focal tumor invasion of lamina propria. There is chronic inflammation and coagulation artifact present. There is no muscularis propria present in the specimen. The case is also examined by Dr. Ferrell, who concurs with the diagnosis. (JPM:head buyer tobacco/alondra; 09/08/2018) . 02 Electronically signed: . Willy Church MD, Pathologist NPI- [id number] . 01 Gross description: . The specimen is received in formalin, labeled "Carolyn Elizondo, bladder tumor", are several grady pink, friable tissue fragments measuring 1.0 x 1.0 x 0.2 cm, entirely submitted in A1. ([facility]; 09/06/2018) SHS/SHS . 02 Pathologist provided ICD-10: C67.9, N30.20 . 02 CPT . 513842 Specimen Comment: A courtesy copy of this report has been sent to Specimen Comment: [phone], . Specimen Comment: Report sent to / DR DE SOUZA Performed at: [address], [place], [place] [id number] MD Hao Lyles MD Phone: [phone] Performed at: 02 [facility] [address] [place], [place] [id number] MD Willy Church MD Phone: [phone]
== END 2018-09-06 15:25 | disposition home or self-care (01) ==
LOC: SURG 09:10
PROVIDERS: ATTEND Urology
DX: C67.4 Malignant neoplasm of posterior wall of bladder (principal); N30.20 Other chronic cystitis without hematuria; I10 Essential (primary) hypertension; M15.0 Primary generalized (osteo)arthritis; Z90.710 Acquired absence of both cervix and uterus; Z98.890 Other specified postprocedural states; F17.210 Nicotine dependence, cigarettes, uncomplicated; Z72.89 Other problems related to lifestyle; Z86.73 Personal history of transient ischemic attack (TIA), and cerebral infarction without residual deficits
CPT/HCPCS: 51720; 52234; 88307; A7015; J0780; J2001; J2405; J2704; J3010; J3490; J9201

== ENCOUNTER → 2018-10-20 | Outpatient (CLI) | payer OTHER ==
[~2018-10-20] MED LIST changes: -CIPROFLOXACIN 400MG PREMIX 200 ML IV ONE; +CONTRAST GIVEN. MC PRN; -HYDROmorphone 2 MG/ML VIAL IV PRN; +IOHEXOL 300 MG/ML 100ML VIAL. IV ONE; -IV RINGERS,LACTATED 1000ML 1,000 ML IV SCH; -MORPHINE SULFATE 2 MG/ML VIAL. IV PRN; -ONDANSETRON PF 4 MG/2 ML VIAL. IV PRN; +PHEN100T82 PO; -PROCHLORPERAZINE 10 MG/2 ML VIAL. IV PRN; +SULF1TAB24 PO; +TRAM50TA PO; -fentaNYL PF VIAL 100 MCG/2 ML VIAL IV PRN
[2018-10-20 10:54] LABS: CREATININE 1.5 mg/dL (0.6-1.0); GFR 39.9
--- NOTE | 2018-10-20 17:26 | RAD ---
EXAM: CT ABDOMEN/PELVIS WITH AND WITHOUT CONTRAST. HISTORY: Bladder cancer. TECHNIQUE: Computed tomography of the abdomen and pelvis was performed before and after the intravenous administration of 70 mL Omnipaque 300. COMPARISON: 09/29/2017. FINDINGS: Lung windows through the visualized portions of the bases reveal mild atelectasis. 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 It returns to normal caliber at the hiatus. There is mild infrarenal abdominal aortic ectasia with maximum diameter 2.5 cm. There are diffuse atherosclerotic calcifications. Bone windows reveal no suspicious lesions. The right hip hemiarthroplasty is noted. No solid renal masses are seen. Nonenhancing cysts measure up to 2.0 cm on the right. Tiny cysts measure 5 mm or less on the left. There is mild to moderate right hydronephrosis and hydroureter. There is no left hydronephrosis. Urographic images demonstrate no collecting system lesion on the right. Contrast is noted within the collecting system but does not extend into the dilated right ureter consistent with component of obstruction and delayed excretion. The left ureter is fully opacified. No upper tract lesions are noted on the left. Streak artifact from the right hip arthroplasty mostly obscures the bladder and right distal ureter. The gallbladder is surgically absent. The common duct measures 10 mm. The pancreatic duct is dilated up to 7 mm distally. No cause for distal obstruction is seen. There are no solid pancreatic parenchymal lesions. A cystic lesion is suspected along the superior aspect of the pancreatic body measuring 5 mm. The liver, spleen and adrenal glands are unremarkable. Stool throughout the colon is consistent with constipation. There are no pathologically enlarged lymph nodes. IMPRESSION: 1. The bladder is mostly obscured by streak artifact from a right hip arthroplasty. Cystoscopy could further assess for bladder involvement. 2. Moderate right hydronephrosis with delayed excretion of contrast on the right. No lesions are appreciated within the upper tracts bilaterally. 3. Bilateral renal cysts appear benign. 4. 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 5. Common and pancreatic ductal dilatation to the level of the ampulla. ERCP or MRCP could assess for ampullary stenosis if there is persistent concern. A 5 mm cystic lesion superiorly in the pancreatic body most likely represents a small side branch intraductal papillary mucinous neoplasm and can also be followed by MRCP. 6. Constipation. *One or more of the following individualized dose reduction techniques were utilized for this examination: 1. Automated exposure control. 2. Adjustment of the mA and/or kV according to patient size. 3. Use of iterative reconstruction technique. Electronically signed by: Krishna Herman MD (10/20/2018 5:23 PM) [facility]
== END | disposition home or self-care (01) ==
LOC: CT 14:36
PROVIDERS: ATTEND Urology
DX: C67.2 Malignant neoplasm of lateral wall of bladder (principal); N13.30 Unspecified hydronephrosis; N28.1 Cyst of kidney, acquired; K59.00 Constipation, unspecified; K86.2 Cyst of pancreas
CPT/HCPCS: 36415; 74178; 82565; 84520; Q9967